=== PATIENT | female | born 1990 | race Two or more races ===

== ENCOUNTER → 2024-03-18 | Outpatient (CLI) | payer MEDICAID, SELFPAY ==
--- NOTE | 2024-03-18 15:30 | XR_ITS ---
Examination: CT brain head without contrast. 2-D sagittal coronal reconstructions Date and time of exam:March 18, 2024 1540 hours Comparison October 19, 2018 INDICATIONS: Onset facial numbness beginning 6 months ago CTDI: vol (mGy):49.1 DLP: (mGycm):987 Technique: Multiple CT axial sections of the brain have been obtained, 5 mm slice thickness. Contrast has not been administered. 2-D sagittal, coronal reconstructions have been obtained Low dose protocols were performed. One or more of the following dose reduction techniques were used; automated exposure control, adjustment of the mA and/or KV according to patient size, use of iterative reconstruction technique. Findings: No significant ventricular enlargement. Intra-axial or extra-axial hemorrhage density is not seen. No mass effect or midline shift Basal cisterns are not remarkable. Fourth ventricle is midline. Cranial vault intact. Large retention cyst left maxillary antrum Impression: Negative for acute hemorrhage, mass effect or midline shift As clinically warranted, brain MRI follow-up would best assess for demyelinating disease
== END | disposition home or self-care (01) ==
PROVIDERS: Visit Provider Nurse Practitioner Family
DX: R20.0 Anesthesia of skin (principal)
CPT/HCPCS: 70450

== ENCOUNTER → 2024-05-24 | Outpatient (CLI) | payer MEDICAID, SELFPAY ==
--- NOTE | 2024-05-24 09:46 | XR_ITS ---
Examination: Left elbow 3 views Technique: Elbow AP, oblique, lateral 3 views Exam date and time: 03/26/2024 at 0951 hrs. Indications: Pelvic pain beginning 3 days ago. Findings: No fracture or dislocation. No elbow effusion Impression: No fracture or dislocation.
== END | disposition home or self-care (01) ==
PROVIDERS: PCP Nurse Practitioner; Referring Provider Nurse Practitioner; Visit Provider Nurse Practitioner
DX: M25.522 Pain in left elbow (principal)
CPT/HCPCS: 73080

== ENCOUNTER → 2024-10-17 | Outpatient (CLI) | payer MEDICAID, SELFPAY ==
--- NOTE | 2024-10-17 | XR_ITS ---
Examination: Lumbar spine 3 views Technique one AP lateral coned lateral lower lumbar spine 3 views Date and time: October 17, 2024 1235 hours INDICATIONS: Low back pain one week. FINDINGS: Grade 1 spondylolisthesis L5 on S1 with advanced degenerative disc disease at this level Soft tissue calcified disc L4-L5 3 mm No lumbar fracture IMPRESSION: Grade 1 spondylolisthesis L5 on S1 Advanced degenerative disc disease L5-S1
--- NOTE | 2024-10-17 | XR_ITS ---
Examination: Abdomen 2 views Technique one AP upright AP supine abdomen 2 views Date and time: October 17, 2024 1232 hours INDICATIONS: Left-sided back and flank pain beginning one week ago. FINDINGS: Moderate to large amounts of stool throughout the colon No obstruction No free air No abnormal calcific densities IMPRESSION: Moderate to large amounts of stool throughout the colon
--- NOTE | 2024-10-17 | XR_ITS ---
Examination: Cervical spine 3 views TECHNIQUE: AP lateral coned AP odontoid cervical spine 3 views Date and time: October 17, 2024 1229 hours INDICATIONS: Neck pain radiating to left arm beginning one week ago. FINDINGS: Satisfactory alignment cervical vertebral bodies No cervical fracture Intact odontoid IMPRESSION: No cervical fracture or significant cervical disc narrowing
== END | disposition home or self-care (01) ==
LOC: CDIM 11:45
PROVIDERS: PCP Nurse Practitioner Family; Referring Provider Nurse Practitioner Family; Visit Provider Nurse Practitioner Family
DX: M54.2 Cervicalgia (principal); M43.17 Spondylolisthesis, lumbosacral region; M51.370 Other intervertebral disc degeneration, lumbosacral region with discogenic back pain only; K59.00 Constipation, unspecified
CPT/HCPCS: 72040; 72100; 74019

== ENCOUNTER 2025-01-03 13:30 | Outpatient (RCR) | payer MEDICAID, SELFPAY ==
--- NOTE | 2024-12-25 10:12 | PT.OIERPT ---
PT OP Initial Eval Patient Information Outpatient Physical Therapy Treatment Date: 12/25/24 Visit Reasons: Low back pain Medical Diagnosis: M51.360 Treatment Dx #1: LBP with radiculopathy Start of Care: 12/25/24 Date of Onset: 3 yrs ago Smoking Status Smoking Status: Never smoker Initial Assessment Subjective: Pt is 34 yr old [place] speaking female who reports LBP that runs down the LE's to the feet L>R x3 yrs. Increased pain with walking and sitting >30 mins. She isn't working due to the L LE pain and numbness and spasming of the muscles. PMH: gastritis Imaging: Xray of L/S Grade 1 spondylolisthesis L5 on S1 with advanced degenerative disc disease at this level, Soft tissue calcified disc L4-L5 3 mm Pt goal: to get rid of the pain and numbness in B LE's and LBP Objective: Trunk ArOM: ? B SB 50% of normal with pain ? Extension: 20% with pain around L4-5, L5-S1 ? Flexion: 10 from floor with LBP ? B rotation: 70% with pain ? TTP: moderate paraspinals L5-S1 ? Neuro: L SLR: positive Assessment: ? Pt presents with trunk flexion sensitivity and overlying myofascial pain ? and TTP around L5-S1 consistent with Xray that shows spondylolisthesis of L5 on S1 and DDD with radiculopathy. Pt requires skilled therapy in order to decrease ? pain and improve sitting/standing tolerance and has poor/fair rehab potential. Eval ?followed by HEP printout. Short Term and Senior Living Goals ? 1. Ind with HEP ? 2. Improved sitting/standing tolerance to 30 minutes with <=4/10 LBP ? 3. Decreased lower paraspinal TTP from mod to min 4. Improved HH chore tolerance to at least 30 minutes with <=3/10 LBP and no ?increase in LE ssx ? Treatment Plan ?1. Manual therapy ? 2. Therex ? 3. Modalities as indicated, moist heat, ice, estim, mechanical traction Frequency and Duration: 1-2x a week for 12 sessions plus evaluation Certification Dates: 12/25/24 to 02/23/25 Procedure Charges OP PT Eval Mod Complex 30 minutes: Yes
--- NOTE | 2025-01-01 11:21 | PT.ODAYNRPT ---
PT Outpatient Daily Note OP Daily Note Outpatient Physical Therapy Treatment Date: 01/01/25 Visit Reasons: Low back pain Subjective: Pt reports LBP is ok today, went to the ER yesterday received an injection and medication for UTI. Pt shared that she had been compliant with HEP PTOR gave her. Objective: Please see flow sheet for ther ex list. Assessment: Pt demonstrates good technique with HEP indicating compliance with HEP. Plan: Continue with poC. Length of Time (minutes) of Treatment: 30 Minutes Procedure Charges Therapeutic Exercise 30 minutes: Yes
--- NOTE | 2025-01-03 14:16 | PT.ODAYNRPT ---
PT Outpatient Daily Note OP Daily Note Outpatient Physical Therapy Treatment Date: 01/03/25 Visit Reasons: Low back pain Subjective: Pt reports back is feeling ok but continues to have numbing of L LE. Objective: Please see flow sheet for ther ex list. Assessment: Pt instructed on sitting trunk flexion, tolerated well encouraged to perform at home. Plan: Continue with pOC. Length of Time (minutes) of Treatment: 30 Minutes Procedure Charges Therapeutic Exercise 30 minutes: Yes
--- NOTE | 2025-01-22 13:26 | PTNOTE_ITS ---
PT OP Progress/Discharge Note Date of Service: 01/22/25 Progress Note/DC Note Progress Note/Discharge Note: DC Note Patient Information Visit Reasons: Low back pain Service Continue Service or Discharge: Discharge Discharge Date: 01/22/25 Status Assessment: Pt attended the initial evaluation and 2 Rx visits and then no showed the next 3 Rx sessions which is not in compliance with attendance policy. Pt?s attendance is not consistent enough to make progress with goals. Thank you for your ref errals. Plan: D/C
== END 2025-01-10 23:59 | disposition home or self-care (01) ==
LOC: CPTX 13:30
PROVIDERS: PCP Nurse Practitioner Family; Referring Provider Nurse Practitioner Family; Visit Provider Nurse Practitioner Family
DX: M51.16 Intervertebral disc disorders with radiculopathy, lumbar region (principal)
CPT/HCPCS: 97110; 97162

== ENCOUNTER → 2025-01-27 | Outpatient (CLI) | payer MEDICAID, SELFPAY ==
--- NOTE | 2025-01-27 10:27 | XR_ITS ---
EXAMINATION: Abdomen 2 views TECHNIQUE: AP upright AP supine abdomen 2 views Date and time: January 27, 2025, 10:33 a.m. INDICATIONS: Abdominal pain beginning 1 month ago. FINDINGS: Moderate to large amounts of stool throughout the colon. No obstruction No free air Intact osseous structures IMPRESSION: Moderate to large amount of stool throughout the colon
== END | disposition home or self-care (01) ==
PROVIDERS: PCP Nurse Practitioner Family; Referring Provider Nurse Practitioner Family; Visit Provider Nurse Practitioner Family
DX: K59.00 Constipation, unspecified (principal)
CPT/HCPCS: 74019